=== PATIENT | male | born 1975 | race Caucasian/White ===

== ENCOUNTER → 2018-08-19 07:50 | Outpatient (CLI) | payer OTHER ==
[~2018-08-19 07:50] MED LIST: ALLOPURINOL100 MG PO
== END | disposition home or self-care (01) ==
LOC: LAB 07:50
DX: R00.2 Palpitations (principal); R42 Dizziness and giddiness; R50.9 Fever, unspecified; Z11.4 Encounter for screening for human immunodeficiency virus [HIV]; R05 Cough

== ENCOUNTER 2019-07-28 07:26 | Outpatient (CLI) | payer OTHER | END 2019-07-28 07:31 | disposition home or self-care (01) | LOC: LAB 07:26 | DX: D64.89 Other specified anemias (principal) ==

== ENCOUNTER → 2019-12-04 06:20 | Outpatient (CLI) | payer OTHER | END | disposition home or self-care (01) | LOC: LAB 06:20 | PROVIDERS: ATTEND General Practice | DX: R30.0 Dysuria (principal); L98.8 Other specified disorders of the skin and subcutaneous tissue; Z11.1 Encounter for screening for respiratory tuberculosis ==